=== PATIENT | male | born 1955 | race Caucasian/White ===

== ENCOUNTER 2016-12-26 13:17 | Inpatient (IN) | payer BC ==
[~2016-12-26] VITALS: Ht 182.9 cm; Wt 115.8 kg
[2017-01-22] MEDS ORDERED: PRINIVIL20 MG PO (11:05)
[2017-01-22] MEDS ORDERED: ZOCOR 10MG10 MG PO (11:06)
[2017-01-22] MEDS ORDERED: NORCO 325 MG-51 TAB PO (11:07)
[2017-01-22] MEDS ORDERED: FLONASE NASAL S16 GM NS (11:07)
[2017-01-22] MEDS ORDERED: KLOR-CON 1010 MEQ (11:08)
[2017-01-22] MEDS ORDERED: TYLENOL 325MG325 MG PO (11:08)
[2017-01-22] MEDS ORDERED: CLARITIN 1010 MG/TAB PO (11:09)
[2017-01-23] VITALS (13 sets, daily range): BP systolic 100–156; BP diastolic 54–98; PULSE 78–102; TEMP 96.8–97.8
[2017-01-24 05:58] VITALS: BP 124/72; PULSE 84; TEMP 97.7
[2017-01-24] MEDS ORDERED: ASPIRIN 32325 MG/TA1 PO (06:15)
[2017-01-24] MEDS ORDERED: CELEBREX 200MG200 MG PO (06:15)
[2017-01-24] MEDS ORDERED: NORCO 325 MG-7.1 TAB PO (06:16)
[2017-01-24] MEDS ORDERED: ULTRAM 50MG TAB50 MG PO (06:16)
[2017-01-24 06:50] LABS: HEMATOCRIT 41.2 % (42.0-52.0); HEMOGLOBIN 13.6 g/dl (13.5-18.0)
[2017-01-24 07:44] VITALS: BP 126/70; PULSE 90; TEMP 98.5
[2017-01-24 12:13] VITALS: BP 126/61; PULSE 84; TEMP 98.5
== END 2017-01-24 15:10 | disposition home or self-care (01) | DRG 470 ==
LOC: JCC 01-23 07:30 → SURG 01-23 09:51 → JCC 01-23 10:15 → SURG 01-24 15:10
PROVIDERS: Orthopaedic Surgery; Physician Assistant
PROC: 0SRB0JZ Replacement of Left Hip Joint with Synthetic Substitute, Open Approach (ICD-10-PCS; principal; 2017-01-23 12:15)
DX: M16.12 Unilateral primary osteoarthritis, left hip (principal); Z23 Encounter for immunization; I10 Essential (primary) hypertension; F17.210 Nicotine dependence, cigarettes, uncomplicated
CPT/HCPCS: A4314; A9284; C1713; C1776; J0690; J1100; J1885; J2250; J2405; J2704; J3010; J7120

== ENCOUNTER → 2017-01-14 | Outpatient (CLI) | payer BC ==
[~2017-01-14] MED LIST: CLARITIN 1010 MG/TAB PO; FLONASE NASAL S16 GM NS; KLOR-CON 1010 MEQ; NORCO 325 MG-51 TAB PO; PRINIVIL20 MG PO; TYLENOL 325MG325 MG PO; ZOCOR 10MG10 MG PO
== END ==
LOC: COL.LAB 16:27
DX: Z01.89 Encounter for other specified special examinations (principal)